=== PATIENT | male | born 1990 | race Caucasian/White ===

== ENCOUNTER 2016-06-29 22:36 | Emergency (ER) | payer BC ==
--- NOTE | 2016-06-29 23:11 | ERPHSYRPT ---
- History of Present Illness Time Seen by Provider: 06/29/16 22:55 Source: patient Physician History: PATIENT COMPLAINS OF ACUTE ONSET OF DYSURIA, FREQUENCY OF URINATION, CLOUDY URINE ASSOCIATED WITH RIGHT SIDED ABDOMINAL PAIN. DENIES URETHRAL DISCHARGE, FLANK PAIN, FEVER OR CHILLS. Timing/Duration: today Activites at Onset: none Quality: cramping Onset Location: RLQ, urethral Pain Radiation: none Severity of Pain-Max: moderate Severity of Pain-Current: mild Modifying Factors: Improves With: urinating Associated Symptoms: denies symptoms Prior abdominal problems: none Allergies/Adverse Reactions: erythromycin base [Erythromycin Base] Allergy (Mild, Verified 06/29/16 23:15) Rash Hx Tetanus, Diphtheria Vaccination/Date Given: No (UNSURE) Hx Influenza Vaccination/Date Given: No Hx Pneumococcal Vaccination/Date Given: No - Past Medical History Pertinent Past Medical History: Yes ENT History: No Pertinent History Cardiac History: No Pertinent History, Other Respiratory History: No Pertinent History Endocrine Medical History: No Pertinent History Musculoskeletal History: No Pertinent History GI Medical History: No Pertinent History History: No Pertinent History Psycho-Social History: No Pertinent History Male Reproductive Disorders: No Pertinent History Other Medical History: AORTIC REGURG - Past Surgical History Past Surgical History: Yes Neuro Surgical History: No Pertinent History Cardiac: No Pertinent History Respiratory: No Pertinent History Gastrointestinal: No Pertinent History Genitourinary: No Pertinent History Musculoskeletal: Orthopedic Surgery Male Surgical History: No Pertinent History Other Surgical History: SHOULDER - Social History Smoking Status: Current every day smoker How long have you smoked: 6 Exposure to second hand smoke: Yes Drug Use: none Patient Lives Alone: No - Review of Systems Constitutional: No Fever, No Chills Eyes: No Symptoms Ears, Nose, & Throat: No Symptoms Respiratory: No Symptoms, No Cough, No Dyspnea Cardiac: No Symptoms, No Chest Pain, No Edema, No Syncope Abdominal/Gastrointestinal: No Abdominal Pain, No Nausea, No Vomiting, No Diarrhea Genitourinary Symptoms: Dysuria Musculoskeletal: No Symptoms, No Back Pain, No Neck Pain Skin: No Rash Neurological: No Dizziness, No Focal Weakness, No Sensory Changes Psychological: No Symptoms Endocrine: No Symptoms All Other Systems: Reviewed and Negative - Nursing Vital Signs Nursing Vital Signs: Initial Vital Signs Temperature 98.7 F Temperature Source Oral Pulse Rate 64 Respiratory Rate 16 Blood Pressure [] 127/66 Pain Intensity 3 - Physical Exam General Appearance: no apparent distress, alert Eye Exam: PERRL/EOMI Ears, Nose, Throat Exam: pharynx normal, moist mucous membranes Neck Exam: normal inspection, supple Respiratory Exam: normal breath sounds, lungs clear Cardiovascular Exam: regular rate/rhythm, No edema Gastrointestinal/Abdomen Exam: soft, normal bowel sounds, tenderness (RIGHT LATERAL ABDOMINAL TENDERNESS) Back Exam: normal inspection, normal range of motion, No CVA tenderness Extremity Exam: normal inspection, normal range of motion, No pedal edema Neurologic Exam: alert, oriented x 3, cooperative, sensation nml, No motor deficits Skin Exam: normal color, warm, dry, No rash - CT Exams Abdomen/Pelvis CT Interpretation: Tele-radiologist Report (THERE IS A 2MM RIGHT URETEROVESICULAR JUNCTION/BLADDER STONE, NO SIGNIFICANT HYDRONEPHROSIS OR HYDROURETER) Ordered Tests: Active Orders 24 hr Category Date Time Status IV Insertion STAT Care 06/29/16 23:05 Active ABDOMEN AND PELVIS W CONTRAST [CT] Stat Exams 06/29/16 23:07 Taken BLOOD CULTURE Stat Lab 06/29/16 23:24 Received BMP Stat Lab 06/29/16 23:23 Completed CBC W DIFF Stat Lab 06/29/16 23:23 Completed CULTURE,URINE Stat Lab 06/29/16 23:10 Received UA W/ MICROSCOPIC Stat Lab 06/29/16 23:10 Completed Wet Prep Stat Lab 06/29/16 23:16 Completed Medication Summary Generic Name Dose Route Start Last Admin Trade Name Freq PRN Reason Stop Dose Admin Acetaminophen/Hydrocodone Bitart 2 tab 06/30/16 01:04 [place] 10/325 Mg Tablet PO 06/30/16 01:05 SENT HOME W/ PATIENT ONE Sodium Chloride 1,000 mls @ 500 mls/hr 06/29/16 23:15 06/29/16 23:24 Sodium Chloride 0.9% 1000 Ml IV 07/29/16 23:14 500 mls/hr .Q2H AQUILES Administration Discontinued Medications Generic Name Dose Route Start Last Admin Trade Name Freq PRN Reason Stop Dose Admin Sodium Chloride Confirm 06/29/16 23:23 Sodium Chloride 0.9% 1000 Ml Administered 06/29/16 23:24 Dose 1,000 mls @ ud .ROUTE .STK-MED ONE Ketorolac Tromethamine 30 mg 06/30/16 00:29 06/30/16 00:37 Toradol 30 Mg Injection IV 06/30/16 00:30 30 mg STAT ONE Administration Ketorolac Tromethamine Confirm 06/30/16 00:36 Toradol 30 Mg Injection Administered 06/30/16 00:37 Dose 30 mg .ROUTE .STK-MED ONE Lab/Rad Data: Laboratory Result Diagrams 06/29/16 23:23 06/29/16 23:23 Laboratory Results 06/29/16 06/29/16 06/29/16 Range/Units 23:23 23:23 23:16 WBC 10.8 H (4.0-10.5) K/mm3 RBC 4.71 (4.1-5.6) M/mm3 Hgb 14.3 (12.5-18.0) gm/dl Hct 41.6 L (42-50) % MCV 88.3 (78-100) fl MCH 30.4 (26-32) pg MCHC 34.4 (32-36) g/dl RDW 13.1 (11.5-14.0) % Plt Count 149 L (150-450) K/mm3 MPV 11.8 H (6-9.5) fl Gran % 79.8 H (36.0-66.0) % Lymphocytes % 13.8 L (24.0-44.0) % Monocytes % 6.0 (0.0-12.0) % Eosinophils % 0.3 (0.00-5.0) % Basophils % 0.1 (0.0-0.4) % Basophils # 0.01 (0-0.4) Sodium 141 (136-145) mEq/L Potassium 3.5 (3.5-5.1) mEq/L Chloride 105 (98-107) mEq/L Carbon Dioxide 26.4 (21-32) mEq/L Anion Gap 12.9 (5-15) MEQ/L BUN 16 (9-20) mg/dL Creatinine 1.23 (0.55-1.30) mg/dl Estimated GFR > 60 ML/MIN Glucose 122 H (70-110) MG/DL Calcium 8.8 (8.5-10.1) mg/dL Ur Collection Type Urine Color (YELLOW) Urine Appearance (CLEAR) Urine pH (5-6) Ur Specific [place] (1.005-1.025) Urine Protein (Negative) Urine Glucose (UA) (NEGATIVE) mg/dL Urine Ketones (NEGATIVE) Urine Nitrite (NEGATIVE) Urine Bilirubin (NEGATIVE) Urine Urobilinogen (0-1) mg/dL Urine WBC (Auto) (NEGATIVE) Urine RBC (Auto) (0-5) Jose D/ul Urine Microscopic RBC (0-2) /HPF Ur Epithelial Cells (FEW) /HPF Urine Bacteria (NEGATIVE) /HPF WBC (Wet Prep) None Seen RBC (Wet Prep) Few Epi Cells (Wet Prep) None Seen Bacteria (Wet Prep) Rare Clue Cells (Wet Prep) None Seen Trichomonas (Wet Prep) None Seen Budding Yeast (Wet Prp) None Seen Specimen Received 06/29/16 Range/Units 23:10 WBC (4.0-10.5) K/mm3 RBC (4.1-5.6) M/mm3 Hgb (12.5-18.0) gm/dl Hct (42-50) % MCV (78-100) fl MCH (26-32) pg MCHC (32-36) g/dl RDW (11.5-14.0) % Plt Count (150-450) K/mm3 MPV (6-9.5) fl Gran % (36.0-66.0) % Lymphocytes % (24.0-44.0) % Monocytes % (0.0-12.0) % Eosinophils % (0.00-5.0) % Basophils % (0.0-0.4) % Basophils # (0-0.4) Sodium (136-145) mEq/L Potassium (3.5-5.1) mEq/L Chloride (98-107) mEq/L Carbon Dioxide (21-32) mEq/L Anion Gap (5-15) MEQ/L BUN (9-20) mg/dL Creatinine (0.55-1.30) mg/dl Estimated GFR ML/MIN Glucose (70-110) MG/DL Calcium (8.5-10.1) mg/dL Ur Collection Type CLEAN CATCH Urine Color YELLOW (YELLOW) Urine Appearance CLEAR (CLEAR) Urine pH 5.5 (5-6) Ur Specific [place] 1.025 (1.005-1.025) Urine Protein 30 (Negative) Urine Glucose (UA) NEGATIVE (NEGATIVE) mg/dL Urine Ketones NEGATIVE (NEGATIVE) Urine Nitrite NEGATIVE (NEGATIVE) Urine Bilirubin NEGATIVE (NEGATIVE) Urine Urobilinogen 0.2 (0-1) mg/dL Urine WBC (Auto) NEGATIVE (NEGATIVE) Urine RBC (Auto) MODERATE (0-5) Jose D/ul Urine Microscopic RBC 25-50 (0-2) /HPF Ur Epithelial Cells FEW (FEW) /HPF Urine Bacteria RARE (NEGATIVE) /HPF WBC (Wet Prep) RBC (Wet Prep) Epi Cells (Wet Prep) Bacteria (Wet Prep) Clue Cells (Wet Prep) Trichomonas (Wet Prep) Budding Yeast (Wet Prp) Specimen Received [id number] - Progress Progress: improved Progress Note: 06/29/16 23:11 PATIENT GIVEN IV NORMAL SALINE 500MG/HR, TORADOL 30MG IV 06/30/16 00:59 Counseled pt/family regarding: lab results, diagnosis, need for follow-up, rad results - Departure Time of Disposition: 01:10 Departure Disposition: Home Clinical Impression: RIGHT DISTAL URETER STONE Condition: Stable Critical Care Time: No Referrals: JANINE PASCUAL [Primary Care Provider] - Additional Instructions: STRAIN YOUR URINE USING A STRAINER FOR 72 HOURS. NORCO 10/325 EVERY 4 HOURS FOR PAIN NEEDED. FLOMAX 0.4MG AT BEDTIME TO ASSIST PASSAGE OF STONE. RETURN TO EMERGENCY FOR INCREASING PAIN. CONSULT YOUR FAMILY PHYSICIAN FOR EVALUATION IN 1 WEEK. Prescriptions: Hydrocodone/APAP 10/325 mg [[place] 10/325 MG Tablet] 1 tab PO Q4H PRN PRN # 20 tablet PRN Reason: Pain Tamsulosin HCl 0.4 mg [Flomax 0.4 MG] 0.4 mg PO DAILY #7 cap
[2016-06-29] MEDS ORDERED: Sodium Chloride 0.9% 1000 ML 1,000 ML IV SCH (23:15)
[2016-06-29] MEDS ORDERED: Sodium Chloride 0.9% 1000 ML 1,000 ML ONE (23:23)
[2016-06-29 23:31] LABS: BASOPHIL % 0.1 % (0.0-0.4); Eosinophil % 0.3 % (0.00-5.0); Granulocytes % 79.8 % (36.0-66.0); Lymphocytes % 13.8 % (24.0-44.0); Mean Cell Volume 88.3 fl (78-100); Mean Corpuscular Hemoglobin 30.4 pg (26-32); Mean Platelet Volume 11.8 fl (6-9.5); Platelet Count 149 K/mm3 (150-450); Red Blood Count 4.71 M/mm3 (4.1-5.6); Red Cell Distribution Width 13.1 % (11.5-14.0); White Blood Count 10.8 K/mm3 (4.0-10.5)
[2016-06-29 23:54] LABS: ANION GAP 12.9 MEQ/L (5-15); BLOOD UREA NITROGEN 16 mg/dL (9-20); CHLORIDE 105 mEq/L (98-107); Carbon Dioxide 26.4 mEq/L (21-32); Glucose 122 MG/DL (70-110); Potassium 3.5 mEq/L (3.5-5.1); SODIUM 141 mEq/L (136-145)
[2016-06-30 00:03] LABS: COMPLETE URINE MICROSCOPIC? YES; Collection Type CLEAN CATCH; Epithelial Cells FEW /HPF (FEW); Ph 5.5 (5-6)
[2016-06-30 00:04] LABS: Bacteria RARE /HPF (NEGATIVE)
[2016-06-30 00:04] LABS: Bacteria Rare; Clue Cells None Seen
[2016-06-30 00:05] LABS: Trichomonas None Seen; Yeast None Seen
[2016-06-30] MEDS ORDERED: TORAdol 30 mg Injection IV ONE (00:29)
[2016-06-30] MEDS ORDERED: TORAdol 30 mg Injection ONE (00:36)
[2016-06-30 00:41] VITALS: BP 127/66
[2016-06-30] MEDS ORDERED: Norco 10/325 MG Tablet PO ONE (01:04)
[2016-06-30 01:05] LABS: CHLAMYDIA URINE NEGATIVE; GC URINE NEGATIVE
[2016-06-30] MEDS ORDERED: Norco 10/325 MG Tablet ONE (01:09)
[2016-06-30 01:24] VITALS: PULSE 83; O2SAT 98
--- NOTE | 2016-06-30 07:53 | XRAY ---
Indication: Right abdominal pain and dysuria. Multiple contiguous axial images obtained through the abdomen and pelvis using 80 cc Isovue-370 contrast only. Comparison: None Lung bases are clear. Heart is not enlarged. 2-3 mm calculus seen in the posterior right urinary bladder. Right ureter is slightly prominent presumed from recent passage of calculus. Additional right renal duodenum 3 mm calculus. Distal left ureter is also prominent up to 11 mm without calculus. Finding presumed not of clinical significance as the more proximal ureter is normal in caliber and there is no hydronephrosis or perinephric fluid hydronephrosis. Noncontrasted stomach and bowel loops appear nonobstructed. Normal appendix. No free fluid/air. 13 cm splenomegaly. Remaining liver, gallbladder, pancreas, spleen, adrenal glands, kidneys, bladder, and aorta appear normal in CT appearance and attenuation. No pathologic retroperitoneal lymphadenopathy. Osseous structures intact. Impression: 1. Right-sided urinary bladder microcalculus as detailed. 2. Incidental prominent distal left ureter without calculus or hydronephrosis probably not of clinical significance. However retrograde pyelogram may yield further information if there remains further clinical concern. 3. Splenomegaly. Comment: Preliminary interpretation was made by [facility]. Findings of the left ureter not reported and felt to be incidental. CTDI 20.06
== END 2016-06-30 01:28 | disposition home or self-care (01) ==
LOC: ED 22:36
DX: N20.1 Calculus of ureter (principal); R30.0 Dysuria; R35.0 Frequency of micturition; R82.90 Unspecified abnormal findings in urine; R10.9 Unspecified abdominal pain; R10.31 Right lower quadrant pain
CPT/HCPCS: 36000; 36415; 74177; 80048; 81000; 81002; 85025; 87040; 87086; 87210; 87491; 87591; 96360; 96361; 96374; 99284; J1885

== ENCOUNTER 2022-04-21 15:42 | Emergency (ER) | payer BC ==
[2022-04-21] MEDS ORDERED: Zofran 4 MG/2 ML VIAL IV ONE (15:55)
[2022-04-21] MEDS ORDERED: MORPHINE SULFATE 4 MG INJ IV ONE (15:55)
[2022-04-21] MEDS ORDERED: BABY ASPIRIN 81 MG CHEW PO ONE (15:55)
[2022-04-21] MEDS ORDERED: Sodium Chloride 0.9% 1000 ML 1,000 ML IV SCH (16:00)
[2022-04-21 16:06] LABS: Absolute Neutrophil Ct (ANC) 3.28 x10^3/uL (1.4-6.9); Basophil (Absolute #) 0.04 x10^3/uL (0-0.4); Eosinophil % 2.1 % (0.00-5.0); Eosinophil (Absolute #) 0.15 x10^3/uL (0-0.5); Hematocrit 44.6 % (42-50); Hemoglobin 15.3 g/dL (12.5-18.0); Lymphocyte (Absolute #) 2.89 x10^3/uL (1.0-4.6); Lymphocytes % 40.6 % (24.0-44.0); Mean Cell Volume 87.6 fL (78-100); Mean Corpuscular Hemoglobin 30.1 pg (26-32); Mean Corpuscular Hgb Concent. 34.3 g/dL (32-36); Mean Platelet Volume 11.3 fL (7.5-11.0); Monocyte (Absolute #) 0.73 x10^3/uL (0.0-1.3); Monocytes % 10.3 % (0.0-12.0); Platelet Count 211 x10^3/uL (150-450); Red Blood Count 5.09 x10^6/uL (4.1-5.6); Red Cell Distribution Width 12.6 % (11.5-14.0); White Blood Count 7.1 x10^3/uL (4.0-10.5)
--- NOTE | 2022-04-21 16:13 | ERPHSYRPT ---
- History of Present Illness Time Seen by Provider: 04/21/22 15:44 Historian: patient Exam Limitations: no limitations Patient Subjective Stated Complaint: PT HERE FOR EPIGASTRIC PAIN THAT STARTED AT REST ABOUT 30 MINS AGO, Triage Nursing Assessment: PT ALERT, WALKED IN, RESP EASY, CO SOB, SKIN W/D/P, NO EDEMA NOTED, CHEST CLEAR Physician History: 31 years old male with history of hypertension, hyperlipidemia, bicuspid aortic valve not taking any medication presented in the ER with chief complaint of sudden onset substernal chest pain, nonradiating, moderate to severe sharp without any significant aggravating or relieving factor, associated with some shortness of breath. No fever chills or cough reported. Timing/Duration: hour(s) (1), sudden Activities at Onset: rest Quality: sharpness Location: substernal Chest Pain Radiation: no radiation Severity of Pain-Max: moderate Severity of Pain-Current: moderate Modifying Factors: Improves With: nothing Associated Symptoms: denies symptoms Prior Chest Pain/Cardiac Workup: no prior cardiac workup Nitro Today/Relief: no nitro taken today Aspirin Treatment Today: no aspirin today Allergies/Adverse Reactions: erythromycin base [Erythromycin Base] Allergy (Mild, Verified 08/12/19 15:42) Rash Hx Tetanus, Diphtheria Vaccination/Date Given: No (UNSURE) Hx Influenza Vaccination/Date Given: No Hx Pneumococcal Vaccination/Date Given: No Immunizations Up to Date: Yes Travel Risk - International Travel Have you traveled outside of the country in past 3 weeks: No - Coronavirus Screening Are you exhibiting any of the following symptoms?: No Close contact with a COVID-19 positive Pt in past 14-21 Days: No - Vaccine Status Have you recieved a Covid-19 vaccination: No - Review of Systems Constitutional: No Symptoms Eyes: No Symptoms Ears, Nose, & Throat: No Symptoms Respiratory: Dyspnea Cardiac: Chest Pain Abdominal/Gastrointestinal: No Symptoms Genitourinary Symptoms: No Symptoms Musculoskeletal: No Symptoms Skin: No Symptoms Neurological: No Symptoms Psychological: No Symptoms Endocrine: No Symptoms Hematologic/Lymphatic: No Symptoms Immunological/Allergic: No Symptoms - Past Medical History Pertinent Past Medical History: Yes ENT History: No Pertinent History Cardiac History: Congenital Heart Disease, High Cholesterol, Hypertension, Other Respiratory History: No Pertinent History Endocrine Medical History: No Pertinent History Musculoskeletal History: No Pertinent History GI Medical History: No Pertinent History History: No Pertinent History Psycho-Social History: No Pertinent History Male Reproductive Disorders: No Pertinent History Other Medical History: AORTIC REGURG - Past Surgical History Past Surgical History: Yes Neuro Surgical History: No Pertinent History Cardiac: No Pertinent History Respiratory: No Pertinent History Gastrointestinal: No Pertinent History Genitourinary: No Pertinent History Musculoskeletal: Orthopedic Surgery Male Surgical History: No Pertinent History Other Surgical History: SHOULDER - Social History Smoking Status: Former smoker How long have you smoked: 6 Exposure to second hand smoke: Yes Drug Use: none Patient Lives Alone: No - Nursing Vital Signs Nursing Vital Signs: Initial Vital Signs Temperature 98.3 F 04/21/22 15:46 Pulse Rate 123 H 04/21/22 15:46 Respiratory Rate 22 04/21/22 15:46 Blood Pressure 174/120 04/21/22 15:46 O2 Sat by Pulse Oximetry 97 04/21/22 15:46 Pain Scale Pain Intensity 0 - Physical Exam General Appearance: no apparent distress, alert Eye Exam: PERRL/EOMI Ears, Nose, Throat Exam: normal ENT inspection, TMs normal, pharynx normal, moist mucous membranes Neck Exam: normal inspection, non-tender, supple, full range of motion Respiratory Exam: normal breath sounds, lungs clear Cardiovascular Exam: normal heart sounds, tachycardia Gastrointestinal/Abdomen Exam: soft, normal bowel sounds, No tenderness Back Exam: normal inspection, normal range of motion Extremity Exam: normal inspection, normal range of motion Neurologic Exam: alert, oriented x 3, cooperative Skin Exam: normal color SpO2 Interpretation: normal SpO2: 97 O2 Delivery: Room Air - Course EKG Interpreted by Me: RATE ([id number]), Sinus Tach, NORMAL AXIS, NORMAL INTERVALS, NORMAL QRS Ordered Tests: Active Orders 24 hr Category Date Time Status Eyeglass Maker STAT Care 04/21/22 15:55 Active EKG-ER Only STAT Care 04/21/22 15:55 Active IV Insertion STAT Care 04/21/22 15:55 Active Oxygen-ED Only Nasal Cannula 2 lpm Care 04/21/22 15:55 Active CHEST WITH CONTRAST [CT] Stat Exams 04/21/22 15:55 Taken CBC W DIFF Stat Lab 04/21/22 16:07 Completed CK-Creatinine Phosphokinase Stat Lab 04/21/22 16:07 Completed CMP Stat Lab 04/21/22 16:07 Completed NT PRO BNP Stat Lab 04/21/22 16:07 Completed TROPONIN Q4H Lab 04/22/22 00:00 Ordered TROPONIN Q4H Lab 04/21/22 16:07 Completed TROPONIN Q4H Lab 04/21/22 19:01 Completed Urine Triage Profile Stat Lab 04/21/22 17:08 Completed Medication Summary Generic Name Dose Route Start Last Admin Trade Name Nilda PRN Reason Stop Dose Admin Sodium Chloride 1,000 mls @ 100 mls/hr 04/21/22 16:00 04/21/22 16:40 Sodium Chloride 0.9% 1000 Ml IV 05/21/22 15:59 100 mls/hr .Q10H AQUILES Administration Discontinued Medications Generic Name Dose Route Start Last Admin Trade Name Nilda PRN Reason Stop Dose Admin Aspirin 324 mg 04/21/22 15:55 04/21/22 16:40 Aspirin 81 Mg Tab.Chew PO 04/21/22 15:56 324 mg STAT ONE Administration Aspirin Confirm 04/21/22 16:37 Aspirin 81 Mg Tab.Chew Administered 04/21/22 16:38 Dose 324 mg .ROUTE .STK-MED ONE Morphine Sulfate 4 mg 04/21/22 15:55 04/21/22 16:40 Morphine Sulfate 4 Mg/Ml Injection IV 04/21/22 15:56 4 mg STAT ONE Administration Morphine Sulfate Confirm 04/21/22 16:37 Morphine Sulfate 4 Mg/Ml Injection Administered 04/21/22 16:38 Dose 4 mg .ROUTE .STK-MED ONE Ondansetron HCl 4 mg 04/21/22 15:55 04/21/22 16:40 Ondansetron Hcl 4 Mg/2 Ml Vial IV 04/21/22 15:56 4 mg STAT ONE Administration Ondansetron HCl Confirm 04/21/22 16:37 Ondansetron Hcl 4 Mg/2 Ml Vial Administered 04/21/22 16:38 Dose 4 mg .ROUTE .STK-MED ONE Lab/Rad Data: Laboratory Result Diagrams 04/21/22 16:07 04/21/22 16:07 Laboratory Results 04/21/22 04/21/22 04/21/22 Range/Units 19:01 17:08 16:07 WBC (4.0-10.5) x10^3/uL RBC (4.1-5.6) x10^6/uL Hgb (12.5-18.0) g/dL Hct (42-50) % MCV (78-100) fL MCH (26-32) pg MCHC (32-36) g/dL RDW (11.5-14.0) % Plt Count (150-450) x10^3/uL MPV (7.5-11.0) fL Gran % (36.0-66.0) % Immature Gran % (Auto) (0.00-0.4) % Nucleat RBC Rel Count (0.00-0.1) % Eos # (Auto) (0-0.5) x10^3/uL Immature Gran # (Auto) (0.00-0.03) x10^3u/L Absolute Lymphs (auto) (1.0-4.6) x10^3/uL Absolute Monos (auto) (0.0-1.3) x10^3/uL Absolute Nucleated RBC (0.00-0.01) x10^3u/L Lymphocytes % (24.0-44.0) % Monocytes % (0.0-12.0) % Eosinophils % (0.00-5.0) % Basophils % (0.0-0.4) % Absolute Granulocytes (1.4-6.9) x10^3/uL Basophils # (0-0.4) x10^3/uL Sodium (137-145) mmol/L Potassium (3.5-5.1) mmol/L Chloride (98-107) mmol/L Carbon Dioxide (22-30) mmol/L Anion Gap (5-15) MEQ/L BUN (9-20) mg/dL Creatinine (0.66-1.25) mg/dL Estimated GFR ML/MIN Glucose (74-106) mg/dL Calcium (8.4-10.2) mg/dL Total Bilirubin (0.2-1.3) mg/dL AST (17-59) U/L ALT (0-50) U/L Alkaline Phosphatase (38-126) U/L Creatine Kinase (55-170) U/L Troponin I < 0.012 < 0.012 (0.000-0.034) ng/mL NT-Pro-B Natriuret Pep (0-450) pg/mL Serum Total Protein (6.3-8.2) g/dL Albumin (3.5-5.0) g/dL Urine Opiates Level NEGATIVE (NEGATIVE) Ur Methadone NEGATIVE (NEGATIVE) Urine Barbiturates NEGATIVE (NEGATIVE) Ur Phencyclidine (PCP) NEGATIVE (NEGATIVE) Urine Amphetamine NEGATIVE (NEGATIVE) U Benzodiazepine Level NEGATIVE (NEGATIVE) Urine Cocaine NEGATIVE (NEGATIVE) Urine Marijuana (THC) NEGATIVE (NEGATIVE) 04/21/22 04/21/22 Range/Units 16:07 16:07 WBC 7.1 (4.0-10.5) x10^3/uL RBC 5.09 (4.1-5.6) x10^6/uL Hgb 15.3 (12.5-18.0) g/dL Hct 44.6 (42-50) % MCV 87.6 (78-100) fL MCH 30.1 (26-32) pg MCHC 34.3 (32-36) g/dL RDW 12.6 (11.5-14.0) % Plt Count 211 (150-450) x10^3/uL MPV 11.3 H (7.5-11.0) fL Gran % 46.0 (36.0-66.0) % Immature Gran % (Auto) 0.4 (0.00-0.4) % Nucleat RBC Rel Count 0.0 (0.00-0.1) % Eos # (Auto) 0.15 (0-0.5) x10^3/uL Immature Gran # (Auto) 0.03 (0.00-0.03) x10^3u/L Absolute Lymphs (auto) 2.89 (1.0-4.6) x10^3/uL Absolute Monos (auto) 0.73 (0.0-1.3) x10^3/uL Absolute Nucleated RBC 0.00 (0.00-0.01) x10^3u/L Lymphocytes % 40.6 (24.0-44.0) % Monocytes % 10.3 (0.0-12.0) % Eosinophils % 2.1 (0.00-5.0) % Basophils % 0.6 (0.0-0.4) % Absolute Granulocytes 3.28 (1.4-6.9) x10^3/uL Basophils # 0.04 (0-0.4) x10^3/uL Sodium 139 (137-145) mmol/L Potassium 3.8 (3.5-5.1) mmol/L Chloride 103 (98-107) mmol/L Carbon Dioxide 24 (22-30) mmol/L Anion Gap 15.4 H (5-15) MEQ/L BUN 18 (9-20) mg/dL Creatinine 0.93 (0.66-1.25) mg/dL Estimated GFR > 60.0 ML/MIN Glucose 104 (74-106) mg/dL Calcium 9.5 (8.4-10.2) mg/dL Total Bilirubin 0.80 (0.2-1.3) mg/dL AST 44 (17-59) U/L ALT 54 H (0-50) U/L Alkaline Phosphatase 90 (38-126) U/L Creatine Kinase 236 H (55-170) U/L Troponin I (0.000-0.034) ng/mL NT-Pro-B Natriuret Pep 39.1 (0-450) pg/mL Serum Total Protein 8.0 (6.3-8.2) g/dL Albumin 4.9 (3.5-5.0) g/dL Urine Opiates Level (NEGATIVE) Ur Methadone (NEGATIVE) Urine Barbiturates (NEGATIVE) Ur Phencyclidine (PCP) (NEGATIVE) Urine Amphetamine (NEGATIVE) U Benzodiazepine Level (NEGATIVE) Urine Cocaine (NEGATIVE) Urine Marijuana (THC) (NEGATIVE) - Progress Progress: improved Air Movement: good Progress Note: 04/21/22 19:45 31-year-old is evaluated for sudden onset chest pain with shortness of breath. Given symptomatic treatment along with fluids, on reevaluation patient is feeling much better and has improvement in chest pain and no short of breath. He is not hypoxic. EKG showed sinus tach with no ST elevation. Negative troponins x2. Obtained CTA which ruled out PE, dissection, pneumonia, pneumothorax. Patient has a low heart score and chest pain is not very typical of cardiac etiology, could have some element of GERD with esophagitis and will give a prescription of Protonix to take at home. Discussed signs symptoms of worsening needing return to ER which he seems understanding. Outpatient follow- up recommended. Blood Culture(s) Obtained: No Antibiotics given: No Counseled pt/family regarding: lab results, diagnosis, need for follow-up, rad results, smoking cessation - Departure Departure Disposition: Home Clinical Impression: Atypical chest pain Condition: Stable Critical Care Time: No Referrals: DOCTOR,NO FAMILY [Primary Care Provider] - Follow up/PCP as directed MATILDA TOMAS [ACTIVE STAFF] - Follow up/PCP as directed (In 2 days for reevaluation) Instructions: Angina (DC) Additional Instructions: Take Tylenol as needed for pain. Follow-up with primary care for reevaluation. Return to ER for worsening chest pain or difficulty breathing. Do not vape/smoke. Prescriptions: PANTOPRAZOLE 40 mg Tablet [Protonix 40MG Tablet] 40 mg PO QAM #30 tab
[2022-04-21 16:29] LABS: ALBUMIN 4.9 g/dL (3.5-5.0); ALKALINE PHOSPHATASE 90 U/L (38-126); ANION GAP 15.4 MEQ/L (5-15); BLOOD UREA NITROGEN 18 mg/dL (9-20); CHLORIDE 103 mmol/L (98-107); CK-Creatinine Phosphokinase 236 U/L (55-170); Calcium 9.5 mg/dL (8.4-10.2); Carbon Dioxide 24 mmol/L (22-30); Creatinine 1 0.93 mg/dL (0.66-1.25); EST GLOMERULAR FILTRATION RATE > 60.0 ML/MIN; Glucose 104 mg/dL (74-106); NT PRO BNP 39.1 pg/mL (0-450); Potassium 3.8 mmol/L (3.5-5.1); SGOT/AST 44 U/L (17-59); SGPT/ALT 54 U/L (0-50); SODIUM 139 mmol/L (137-145)
[2022-04-21] MEDS ORDERED: Zofran 4 MG/2 ML VIAL ONE (16:37)
[2022-04-21] MEDS ORDERED: MORPHINE SULFATE 4 MG INJ ONE (16:37)
[2022-04-21] MEDS ORDERED: BABY ASPIRIN 81 MG CHEW ONE (16:37)
[2022-04-21] MEDS ORDERED: Sodium Chloride 0.9% 1000 ML 1,000 ML ONE (16:37)
[2022-04-21 17:30] LABS: Amphetamine,Urine NEGATIVE (NEGATIVE); Barbiturate,Urine NEGATIVE (NEGATIVE); Benzodiazepine,Urine NEGATIVE (NEGATIVE); Cocaine,Urine NEGATIVE (NEGATIVE); Methadone,Urine NEGATIVE (NEGATIVE); Opiate,Urine NEGATIVE (NEGATIVE); PCP,Urine NEGATIVE (NEGATIVE); THC,Urine NEGATIVE (NEGATIVE)
[2022-04-21 19:09] VITALS: BP 126/72; PULSE 78; O2SAT 97
--- NOTE | 2022-04-21 20:26 | XRAY ---
Indication: Chest pain and short of breath. Pulmonary embolus. Multiple contiguous images obtained through the chest using 80 cc Isovue 370 contrast and PE protocol. Comparison: None Good opacification of the pulmonary arteries. However mild respiration artifact limits evaluation of the more distal lobar and segmental branches. No obvious pulmonary embolus. Heart not enlarged. Aorta is normal in course and caliber. Tiny mediastinal and right hilar calcified nodes. No pathologic mediastinal/hilar lymphadenopathy. Lungs demonstrates mild bilateral dependent atelectasis. No suspicious pulmonary mass, infiltrate, effusion, or pneumothorax. Bony thorax intact with minimal degenerative changes throughout the spine. Limited upper abdomen demonstrates fatty liver. Impression: 1. Mild respiration artifact limits evaluation for pulmonary embolus. No obvious pulmonary embolus. 2. Incidental degenerative spondylosis, fatty liver, and old granulomatous disease. 3. Remaining CT chest with contrast exam is negative. Comment: Preliminary interpretation made by C. No critical discrepancy.
== END 2022-04-21 19:53 | disposition home or self-care (01) ==
LOC: ED 15:42
DX: R07.89 Other chest pain (principal); R06.02 Shortness of breath; I10 Essential (primary) hypertension; E78.5 Hyperlipidemia, unspecified; Z28.310 Unvaccinated for COVID-19
CPT/HCPCS: 36000; 36415; 71260; 80053; 80307; 82550; 83880; 84484; 85025; 93005; 93041; 96360; 96361; 96374; 96375; 99284; J2270; J2405; A9270-GY

== ENCOUNTER 2023-05-23 15:17 | Emergency (ER) | payer BC ==
[2023-05-23 15:27] VITALS: TEMP 98.5
--- NOTE | 2023-05-23 15:29 | ERPHSYRPT ---
- History of Present Illness Time Seen by Provider: 05/23/23 15:28 Source: patient, EMS Exam Limitations: no limitations Patient Subjective Stated Complaint: C/O rapid heart rate that started approx 50 minutes prior to coming into the ER while washing his vehicle. Tachycardia did not resolve with rest. Denies pain. Triage Nursing Assessment: Patient arrived by ambulance. He is alert and oriented. No SOB. He does have an occassional, non-productive cough. Skin tone normal. KELSEA ESTRADA. Physician History: This is a 32-year-old white male patient who sees a steward/stewardess dining room in [place] for his high blood pressure. Patient was placed on valsartan 160 mg daily. However, 2 weeks ago, because he was sleepy and fatigued, the patient cut his valsartan medication in half for a week. He then began feeling funny and fatigu ed again despite the decrease in dose and stopped the medicine altogether 1 week ago. Today, he was washing his vehicle and he noticed his heart racing. This occurred approxi-50 minutes prior to his visit here in the emergency department. Because the symptoms did not resolve, he contacted the paramedics who brought him into the emergency department. Patient never let the steward/stewardess dining room know that he had changed the dosing and then stopped his medication. Patient denies shortness of breath. He denies chest pain. Patient does have a history of GERD and anxiety issues. Patient did state that he has modified his lifestyle in terms of eating better, he has stopped drinking alcohol and has stopped vaping. In addition he has lost at least 10 pounds. Timing/Duration: today Activities at Onset: none Quality: aching Location: other (No chest pain) Severity of Pain-Max: none Severity of Pain-Current: none Nitro Today/Relief: no nitro taken today Aspirin Treatment Today: no aspirin today Associated Symptoms: denies symptoms Prior Chest Pain/Cardiac Workup: no prior chest pain Allergies/Adverse Reactions: erythromycin base [Erythromycin Base] Allergy (Mild, Verified 05/23/23 15:19) Rash Home Medications: Omeprazole 1 tab PO DAILY 05/23/23 [History] Hx Tetanus, Diphtheria Vaccination/Date Given: No (UNSURE) Hx Influenza Vaccination/Date Given: No Hx Pneumococcal Vaccination/Date Given: No Travel Risk - International Travel Have you traveled outside of the country in past 3 weeks: No - Coronavirus Screening Are you exhibiting any of the following symptoms?: Yes Symptoms: Cough: New Onset Close contact with a COVID-19 positive Pt in past 14-21 Days: No - Vaccine Status Have you recieved a Covid-19 vaccination: No - Review of Systems Constitutional: No Symptoms Eyes: No Symptoms Ears, Nose, & Throat: No Symptoms Respiratory: No Symptoms Cardiac: Palpitations Abdominal/Gastrointestinal: No Symptoms Genitourinary Symptoms: No Symptoms Musculoskeletal: No Symptoms Skin: No Symptoms Neurological: No Symptoms Psychological: No Symptoms Endocrine: No Symptoms Hematologic/Lymphatic: No Symptoms Immunological/Allergic: No Symptoms All Other Systems: Reviewed and Negative - Past Medical History Pertinent Past Medical History: Yes ENT History: No Pertinent History Cardiac History: Congenital Heart Disease, High Cholesterol, Hypertension, Other Respiratory History: No Pertinent History Endocrine Medical History: No Pertinent History Musculoskeletal History: No Pertinent History GI Medical History: No Pertinent History History: No Pertinent History Psycho-Social History: No Pertinent History Male Reproductive Disorders: No Pertinent History Other Medical History: AORTIC REGURG caused by bicuspid aortic valve - Past Surgical History Past Surgical History: Yes Neuro Surgical History: No Pertinent History Cardiac: No Pertinent History Respiratory: No Pertinent History Gastrointestinal: No Pertinent History Genitourinary: No Pertinent History Musculoskeletal: Orthopedic Surgery Male Surgical History: No Pertinent History Other Surgical History: SHOULDER - Social History Smoking Status: Former smoker How long have you smoked: 6 Exposure to second hand smoke: Yes Drug Use: none Patient Lives Alone: No - Nursing Vital Signs Nursing Vital Signs: Initial Vital Signs Temperature 98.5 F 05/23/23 15:21 Pulse Rate 113 H 05/23/23 15:21 Respiratory Rate 20 05/23/23 15:21 Blood Pressure 133/82 05/23/23 15:21 O2 Sat by Pulse Oximetry 98 05/23/23 15:21 Pain Scale Pain Intensity 0 - Physical Exam General Appearance: no apparent distress, alert, anxiety Eye Exam: PERRL/EOMI, eyes nml inspection Ears, Nose, Throat Exam: normal ENT inspection, moist mucous membranes Neck Exam: normal inspection, non-tender, supple, full range of motion Respiratory Exam: normal breath sounds, lungs clear, airway intact, No chest tenderness, No respiratory distress Cardiovascular Exam: tachycardia Gastrointestinal/Abdomen Exam: soft, normal bowel sounds, No tenderness Rectal Exam: not done Back Exam: normal inspection, normal range of motion, No CVA tenderness Extremity Exam: normal inspection, normal range of motion, pelvis stable Neurologic Exam: alert, oriented x 3, cooperative, roto mixer operator II-XII nml as tested, normal mood/affect, nml cerebellar function, nml station & gait, sensation nml Skin Exam: normal color, warm, dry Lymphatic Exam: No adenopathy SpO2 Interpretation: normal SpO2: 98 O2 Delivery: Room Air - Course Nursing assessment & vital signs reviewed: Yes EKG Interpreted by Me: RATE ([id number]), Sinus Tach, NORMAL AXIS, NORMAL INTERVALS, NORMAL QRS, NORMAL ST-T, Other (No acute ischemic changes on today's twelve-lead EKG.) Ordered Tests: Active Orders 24 hr Category Date Time Status Costume Director STAT Care 05/23/23 15:29 Active EKG-ER Only STAT Care 05/23/23 15:29 Active CBC W DIFF Stat Lab 05/23/23 15:46 Completed CMP Stat Lab 05/23/23 15:46 Completed MAGNESIUM Stat Lab 05/23/23 15:46 Completed TROPONIN Q4H Lab 05/23/23 15:46 Completed TROPONIN Q4H Lab 05/23/23 19:30 Ordered TROPONIN Q4H Lab 05/23/23 23:30 Ordered Lab/Rad Data: Laboratory Result Diagrams 05/23/23 15:46 05/23/23 15:46 Laboratory Results 05/23/23 05/23/23 05/23/23 Range/Units 15:46 15:46 15:46 WBC 7.2 (4.0-10.5) x10^3/uL RBC 4.10 (4.1-5.6) x10^6/uL Hgb 11.9 L (12.5-18.0) g/dL Hct 35.2 L (42-50) % MCV 85.9 (78-100) fL MCH 29.0 (26-32) pg MCHC 33.8 (32-36) g/dL RDW 12.0 (11.5-14.0) % Plt Count 231 (150-450) x10^3/uL MPV 10.3 (7.5-11.0) fL Gran % 75.7 H (36.0-66.0) % Immature Gran % (Auto) 0.4 (0.00-0.4) % Nucleat RBC Rel Count 0.0 (0.00-0.1) % Eos # (Auto) 0.02 (0-0.5) x10^3/uL Immature Gran # (Auto) 0.03 (0.00-0.03) x10^3u/L Absolute Lymphs (auto) 1.18 (1.0-4.6) x10^3/uL Absolute Monos (auto) 0.51 (0.0-1.3) x10^3/uL Absolute Nucleated RBC 0.00 (0.00-0.01) x10^3u/L Lymphocytes % 16.3 L (24.0-44.0) % Monocytes % 7.0 (0.0-12.0) % Eosinophils % 0.3 (0.00-5.0) % Basophils % 0.3 (0.0-0.4) % Absolute Granulocytes 5.48 (1.4-6.9) x10^3/uL Basophils # 0.02 (0-0.4) x10^3/uL Sodium 135 L (137-145) mmol/L Potassium 3.2 L (3.5-5.1) mmol/L Chloride 105 (98-107) mmol/L Carbon Dioxide 21 L (22-30) mmol/L Anion Gap 13.0 (5-15) MEQ/L BUN 12 (9-20) mg/dL Creatinine 0.91 (0.66-1.25) mg/dL Estimated GFR 113.4 ML/MIN Glucose 109 H (74-106) mg/dL Calcium 9.2 (8.4-10.2) mg/dL Magnesium 2.2 (1.6-2.3) mg/dL Total Bilirubin 0.90 (0.2-1.3) mg/dL AST 24 (17-59) U/L ALT 36 (0-50) U/L Alkaline Phosphatase 108 (38-126) U/L Troponin I < 0.012 (0.000-0.034) ng/mL Serum Total Protein 7.5 (6.3-8.2) g/dL Albumin 4.0 (3.5-5.0) g/dL - Progress Progress: improved, re-examined Air Movement: good Progress Note: 05/23/23 16:26 This patient's medical issue is 1 of moderate complexity. The level of complexity and the workup performed is based on review of the patient's past medical history, review of the patient's medication list, review of the patient's drug allergy list, history present illness and physical findings on examination. The workup includes CBC, CMP, troponin level, twelve-lead EKG. 05/23/23 16:27 I reviewed the patient's laboratory data results and interpreted them. The patient has a low potassium level at 3.2. Will provide oral potassium 20 mill equivalents now and send a prescription to his pharmacy for 2 more days of potassium. Blood Culture(s) Obtained: No Antibiotics given: No Counseled pt/family regarding: lab results, diagnosis, need for follow-up Medical Desision Making - Independent Historian Additional History obtained from: Spouse, Director Smb Sales/EMT - Diagnostic Testing Diagnostic test were ordered, analyzed, and reviewed by me: Yes - Risk of complications The pt has a mod risk of morbidity or mortality based on: Need for prescription drug management - Departure Departure Disposition: Home Clinical Impression: Sinus tachycardia, Hypokalemia, Anxiety about health Condition: Stable Critical Care Time: No Referrals: DOCTOR,NO FAMILY [NON-STAFF PHY W/O PRIVILEGES] - Follow up/PCP as directed Additional Instructions: Take your potassium supplementation as prescribed. Call your steward/stewardess dining room tomorrow, 05/24/2023 and make them aware that you have stopped your valsartan and make a follow-up appointment for further management and instructions. Prescriptions: Potassium Chloride Tab* [Klor Con] 10 meq PO BID #4 tab
[2023-05-23 15:56] LABS: Absolute Neutrophil Ct (ANC) 5.48 x10^3/uL (1.4-6.9); BASOPHIL % 0.3 % (0.0-0.4); Basophil (Absolute #) 0.02 x10^3/uL (0-0.4); Eosinophil % 0.3 % (0.00-5.0); Eosinophil (Absolute #) 0.02 x10^3/uL (0-0.5); Hematocrit 35.2 % (42-50); Hemoglobin 11.9 g/dL (12.5-18.0); IMMATURE GRAN # 0.03 x10^3u/L (0.00-0.03); IMMATURE GRAN % 0.4 % (0.00-0.4); Lymphocyte (Absolute #) 1.18 x10^3/uL (1.0-4.6); Lymphocytes % 16.3 % (24.0-44.0); Mean Cell Volume 85.9 fL (78-100); Mean Corpuscular Hgb Concent. 33.8 g/dL (32-36); Mean Platelet Volume 10.3 fL (7.5-11.0); Monocyte (Absolute #) 0.51 x10^3/uL (0.0-1.3); Neutrophil % 75.7 % (36.0-66.0); Platelet Count 231 x10^3/uL (150-450); White Blood Count 7.2 x10^3/uL (4.0-10.5)
[2023-05-23 16:07] LABS: BILIRUBIN,TOTAL 0.9 mg/dL (0.2-1.3); Calcium 9.2 mg/dL (8.4-10.2); Creatinine 1 0.91 mg/dL (0.66-1.25); EST GLOMERULAR FILTRATION RATE 113.4 ML/MIN; MAGNESIUM 2.2 mg/dL (1.6-2.3); Potassium 3.2 mmol/L (3.5-5.1); Total Protein 7.5 g/dL (6.3-8.2)
[2023-05-23 16:22] VITALS: BP 128/70; PULSE 92; RESP 12
[2023-05-23 16:27] VITALS: O2SAT 98
[2023-05-23] MEDS ORDERED: Klor Con ONE (16:29)
[2023-05-23] MEDS: Klor Con PO ONE (16:30)
== END 2023-05-23 16:40 | disposition home or self-care (01) ==
LOC: ED 15:17
DX: R00.0 Tachycardia, unspecified (principal); E87.6 Hypokalemia; F45.9 Somatoform disorder, unspecified; E78.5 Hyperlipidemia, unspecified; I10 Essential (primary) hypertension; Z28.310 Unvaccinated for COVID-19
CPT/HCPCS: 36415; 80053; 83735; 84484; 85025; 93005; 93041; 99283; A9270-GY

== ENCOUNTER 2023-08-07 13:12 | Emergency (ER) | payer BC ==
[2023-08-07 13:34] VITALS: TEMP 97.1
--- NOTE | 2023-08-07 14:08 | ERPHSYRPT ---
- History of Present Illness Time Seen by Provider: 08/07/23 13:27 Source: patient Exam Limitations: no limitations Patient Subjective Stated Complaint: pt here for pain to left side of ribs since yesterday, no injury , no cough or fever, took tylenol Triage Nursing Assessment: pt walked in, resp easy, skin w/d/p, no cough, moves all ext well, no bruising noted, Physician History: 32 years old healthy male presented to the ER with complains of left lower posterolateral chest wall and flank area pain since yesterday, moderate to severe sharp, more with taking deep breath, movements and better with being still. Denies associated palpitations or shortness of breath except for some difficulty taking a deep breath because of pain. Denies any nausea or vomiting. No urinary complaints. No history of DVT/PEs. Denies any fall or trauma. No pulling or pushing heavy objects. No history of chronic pains. Allergies/Adverse Reactions: erythromycin base [Erythromycin Base] Allergy (Mild, Verified 08/07/23 13:22) Rash Home Medications: Omeprazole 1 tab PO DAILY 05/23/23 [History] Escitalopram Oxalate [Lexapro] 20 mg PO DAILY 08/07/23 [History] Hx Tetanus, Diphtheria Vaccination/Date Given: No (UNSURE) Hx Influenza Vaccination/Date Given: No Hx Pneumococcal Vaccination/Date Given: No Immunizations Up to Date: Yes Travel Risk - International Travel Have you traveled outside of the country in past 3 weeks: No - Emerging Infectious Disease Are you exhibiting symptoms associated with any current EIDs: No - Review of Systems Constitutional: No Symptoms Ears, Nose, & Throat: No Symptoms Respiratory: No Symptoms Cardiac: Chest Pain Abdominal/Gastrointestinal: No Symptoms Genitourinary Symptoms: Flank Pain Musculoskeletal: Back Pain Skin: No Symptoms Neurological: No Symptoms Psychological: No Symptoms Endocrine: No Symptoms Hematologic/Lymphatic: No Symptoms Immunological/Allergic: No Symptoms - Past Medical History Pertinent Past Medical History: Yes ENT History: No Pertinent History Cardiac History: Congenital Heart Disease, Other Respiratory History: No Pertinent History Endocrine Medical History: No Pertinent History Musculoskeletal History: No Pertinent History GI Medical History: No Pertinent History History: No Pertinent History Psycho-Social History: No Pertinent History Male Reproductive Disorders: No Pertinent History Other Medical History: AORTIC REGURG caused by bicuspid aortic valve - Past Surgical History Past Surgical History: Yes Neuro Surgical History: No Pertinent History Cardiac: No Pertinent History Respiratory: No Pertinent History Gastrointestinal: No Pertinent History Genitourinary: No Pertinent History Musculoskeletal: Orthopedic Surgery Male Surgical History: No Pertinent History Other Surgical History: SHOULDER - Social History Smoking Status: Never smoker How long have you smoked: 6 Exposure to second hand smoke: No Drug Use: none Patient Lives Alone: No - Nursing Vital Signs Nursing Vital Signs: Initial Vital Signs Temperature 97.1 F 08/07/23 13:33 Pulse Rate 91 H 08/07/23 13:33 Respiratory Rate 18 08/07/23 13:33 Blood Pressure 106/54 08/07/23 13:33 O2 Sat by Pulse Oximetry 98 08/07/23 13:33 Pain Scale Pain Intensity 6 - Physical Exam General Appearance: no apparent distress, alert Eye Exam: PERRL/EOMI Ears, Nose, Throat Exam: normal ENT inspection, TMs normal, pharynx normal, moist mucous membranes Neck Exam: normal inspection, non-tender, supple, full range of motion Respiratory Exam: normal breath sounds, chest tenderness (Left lower lateral to posterior chest wall with no crepitus. No flail segment. No rash. Flank tenderness.), lungs clear Cardiovascular Exam: regular rate/rhythm, normal heart sounds Gastrointestinal/Abdomen Exam: soft, normal bowel sounds, tenderness Back Exam: normal inspection Extremity Exam: normal inspection, normal range of motion Neurologic Exam: alert, oriented x 3, cooperative Skin Exam: normal color SpO2 Interpretation: normal SpO2: 98 O2 Delivery: Room Air - Course EKG Interpreted by Me: RATE ([id number]), Sinus Rhythm, NORMAL AXIS, prolonged QT interval, Non-specific ST Changes Ordered Tests: Active Orders 24 hr Category Date Time Status EKG-ER Only STAT Care 08/07/23 14:04 Completed IV Insertion STAT Care 08/07/23 14:04 Completed NPO (ED) STAT Care 08/07/23 14:04 Completed ABDOMEN AND PELVIS W CONTRAST [CT] Stat Exams 08/07/23 14:49 Completed CHEST 1 VIEW (PORTABLE) Stat Exams 08/07/23 14:05 Completed CHEST WITH CONTRAST [CT] Stat Exams 08/07/23 14:49 Completed CBC W DIFF Stat Lab 08/07/23 14:13 Completed CMP Stat Lab 08/07/23 14:13 Completed CULTURE,URINE Stat Lab 08/07/23 15:20 Results D-DIMER QUANTITATIVE Stat Lab 08/07/23 14:13 Completed PT INR [PROTIME WITH INR] Stat Lab 08/07/23 15:47 Completed PTT Stat Lab 08/07/23 15:47 Completed TROPONIN Q4H Lab 08/07/23 14:13 Completed UA W/RFX UR CULTURE Stat Lab 08/07/23 15:20 Completed Medication Summary Discontinued Medications Generic Name Dose Route Start Last Admin Trade Name Nilda PRN Reason Stop Dose Admin Sodium Chloride 1,000 mls @ 999 mls/hr 08/07/23 14:04 08/07/23 15:37 Sodium Chloride 0.9% 1000 Ml IV 08/07/23 15:04 Infused .Q1H1M STA Infusion Sodium Chloride Confirm 08/07/23 14:19 Sodium Chloride 0.9% 1000 Ml Administered 08/07/23 14:20 Dose 1,000 mls @ ud .ROUTE .STK-MED ONE Sodium Chloride 1,000 mls @ 999 mls/hr 08/07/23 15:58 08/07/23 17:20 Sodium Chloride 0.9% 1000 Ml IV 08/07/23 16:58 Infused .Q1H1M STA Infusion Sodium Chloride Confirm 08/07/23 16:00 Sodium Chloride 0.9% 1000 Ml Administered 08/07/23 16:01 Dose 1,000 mls @ ud .ROUTE .STK-MED ONE Lorazepam 1 mg 08/07/23 16:36 08/07/23 16:42 Lorazepam 2 Mg/1 Ml 2 Mg Vial IV 08/07/23 16:37 1 mg STAT ONE Administration Lorazepam Confirm 08/07/23 16:41 Lorazepam 2 Mg/1 Ml 2 Mg Vial Administered 08/07/23 16:42 Dose 2 mg .ROUTE .STK-MED ONE Morphine Sulfate 4 mg 08/07/23 14:04 08/07/23 14:25 Morphine Sulfate 4 Mg/Ml Injection IV 08/07/23 14:05 4 mg STAT ONE Administration Morphine Sulfate Confirm 08/07/23 14:19 Morphine Sulfate 4 Mg/Ml Injection Administered 08/07/23 14:20 Dose 4 mg .ROUTE .STK-MED ONE Ondansetron HCl 4 mg 08/07/23 14:04 08/07/23 14:22 Ondansetron Hcl 4 Mg/2 Ml Vial IV 08/07/23 14:05 4 mg STAT ONE Administration Ondansetron HCl Confirm 08/07/23 14:18 Ondansetron Hcl 4 Mg/2 Ml Vial Administered 08/07/23 14:19 Dose 4 mg .ROUTE .[facility]-MED ONE Lab/Rad Data: Laboratory Result Diagrams 08/07/23 14:13 08/07/23 14:13 Laboratory Results 08/07/23 08/07/23 08/07/23 Range/Units Unknown 16:15 15:47 WBC (4.0-10.5) x10^3/uL RBC (4.1-5.6) x10^6/uL Hgb (12.5-18.0) g/dL Hct (42-50) % MCV (78-100) fL MCH (26-32) pg MCHC (32-36) g/dL RDW (11.5-14.0) % Plt Count (150-450) x10^3/uL MPV (7.5-11.0) fL Gran % (36.0-66.0) % Immature Gran % (Auto) (0.00-0.4) % Nucleat RBC Rel Count (0.00-0.1) % Eos # (Auto) (0-0.5) x10^3/uL Immature Gran # (Auto) (0.00-0.03) x10^3u/L Absolute Lymphs (auto) (1.0-4.6) x10^3/uL Absolute Monos (auto) (0.0-1.3) x10^3/uL Absolute Nucleated RBC (0.00-0.01) x10^3u/L Lymphocytes % (24.0-44.0) % Monocytes % (0.0-12.0) % Eosinophils % (0.00-5.0) % Basophils % (0.0-0.4) % Absolute Granulocytes (1.4-6.9) x10^3/uL Basophils # (0-0.4) x10^3/uL PT 11.9 (9.4-12.5) SECONDS INR 1.10 (0.8-3.0) APTT 32.9 (25.1-36.5) SECONDS D-Dimer (0.0-0.50) mg/L Sodium (135-145) mmol/L Potassium (3.5-5.1) mmol/L Chloride (98-107) mmol/L Carbon Dioxide (22-30) mmol/L Anion Gap (5-15) MEQ/L BUN (9-20) mg/dL Creatinine (0.66-1.25) mg/dL Estimated GFR ML/MIN Glucose (74-106) mg/dL Calcium (8.4-10.2) mg/dL Total Bilirubin (0.2-1.3) mg/dL AST (17-59) U/L ALT (0-50) U/L Alkaline Phosphatase (38-126) U/L Troponin I (0.000-0.033) ng/mL Serum Total Protein (6.3-8.2) g/dL Albumin (3.5-5.0) g/dL Urine Color (Yellow) Urine Appearance (Clear) Urine pH (4.6-8.0) Ur Specific [place] (1.005-1.030) Urine Protein (Negative) Urine Glucose (UA) (Negative) mg/dL Urine Ketones (Negative) Urine Blood (Negative) Urine Nitrite (Negative) Urine Bilirubin (Negative) Urine Urobilinogen (0.2) mg/dL Ur Leukocyte Esterase (Negative) U Hyaline Cast (Auto) (0-2) /LPF Urine Microscopic RBC (0-5) /HPF Urine Microscopic WBC (0-5) /HPF Ur Epithelial Cells (None Seen) /HPF Urine Bacteria (None Seen) /HPF Urine Culture Reflexed (NO) ABO Group Rh Factor Antibody Screen (NEGATIVE) Crossmatch COMPATIBLE COMPATIBLE (COMPATIBLE) 08/07/23 08/07/23 08/07/23 Range/Units 15:20 15:00 14:13 WBC (4.0-10.5) x10^3/uL RBC (4.1-5.6) x10^6/uL Hgb (12.5-18.0) g/dL Hct (42-50) % MCV (78-100) fL MCH (26-32) pg MCHC (32-36) g/dL RDW (11.5-14.0) % Plt Count (150-450) x10^3/uL MPV (7.5-11.0) fL Gran % (36.0-66.0) % Immature Gran % (Auto) (0.00-0.4) % Nucleat RBC Rel Count (0.00-0.1) % Eos # (Auto) (0-0.5) x10^3/uL Immature Gran # (Auto) (0.00-0.03) x10^3u/L Absolute Lymphs (auto) (1.0-4.6) x10^3/uL Absolute Monos (auto) (0.0-1.3) x10^3/uL Absolute Nucleated RBC (0.00-0.01) x10^3u/L Lymphocytes % (24.0-44.0) % Monocytes % (0.0-12.0) % Eosinophils % (0.00-5.0) % Basophils % (0.0-0.4) % Absolute Granulocytes (1.4-6.9) x10^3/uL Basophils # (0-0.4) x10^3/uL PT (9.4-12.5) SECONDS INR (0.8-3.0) APTT (25.1-36.5) SECONDS D-Dimer 1.96 H* (0.0-0.50) mg/L Sodium (135-145) mmol/L Potassium (3.5-5.1) mmol/L Chloride (98-107) mmol/L Carbon Dioxide (22-30) mmol/L Anion Gap (5-15) MEQ/L BUN (9-20) mg/dL Creatinine (0.66-1.25) mg/dL Estimated GFR ML/MIN Glucose (74-106) mg/dL Calcium (8.4-10.2) mg/dL Total Bilirubin (0.2-1.3) mg/dL AST (17-59) U/L ALT (0-50) U/L Alkaline Phosphatase (38-126) U/L Troponin I (0.000-0.033) ng/mL Serum Total Protein (6.3-8.2) g/dL Albumin (3.5-5.0) g/dL Urine Color Yellow (Yellow) Urine Appearance Clear (Clear) Urine pH 6.5 (4.6-8.0) Ur Specific [place] 1.010 (1.005-1.030) Urine Protein Trace A (Negative) Urine Glucose (UA) Negative (Negative) mg/dL Urine Ketones Negative (Negative) Urine Blood Trace (Negative) Urine Nitrite Negative (Negative) Urine Bilirubin Negative (Negative) Urine Urobilinogen 1.0 A (0.2) mg/dL Ur Leukocyte Esterase Negative (Negative) U Hyaline Cast (Auto) NONE SEEN (0-2) /LPF Urine Microscopic RBC 0-2 (0-5) /HPF Urine Microscopic WBC 0-2 (0-5) /HPF Ur Epithelial Cells None Seen (None Seen) /HPF Urine Bacteria None Seen (None Seen) /HPF Urine Culture Reflexed YES (NO) ABO Group O Rh Factor POSITIVE Antibody Screen NEGATIVE (NEGATIVE) Crossmatch (COMPATIBLE) 08/07/23 08/07/23 08/07/23 Range/Units 14:13 14:13 14:13 WBC 9.4 (4.0-10.5) x10^3/uL RBC 3.30 L (4.1-5.6) x10^6/uL Hgb 7.9 L (12.5-18.0) g/dL Hct 25.5 L (42-50) % MCV 77.3 L (78-100) fL MCH 23.9 L (26-32) pg MCHC 31.0 L (32-36) g/dL RDW 15.5 H (11.5-14.0) % Plt Count 248 (150-450) x10^3/uL MPV 10.0 (7.5-11.0) fL Gran % 85.5 H (36.0-66.0) % Immature Gran % (Auto) 0.5 H (0.00-0.4) % Nucleat RBC Rel Count 0.0 (0.00-0.1) % Eos # (Auto) 0.05 (0-0.5) x10^3/uL Immature Gran # (Auto) 0.05 H (0.00-0.03) x10^3u/L Absolute Lymphs (auto) 0.81 L (1.0-4.6) x10^3/uL Absolute Monos (auto) 0.43 (0.0-1.3) x10^3/uL Absolute Nucleated RBC 0.00 (0.00-0.01) x10^3u/L Lymphocytes % 8.7 L (24.0-44.0) % Monocytes % 4.6 (0.0-12.0) % Eosinophils % 0.5 (0.00-5.0) % Basophils % 0.2 (0.0-0.4) % Absolute Granulocytes 8.00 H (1.4-6.9) x10^3/uL Basophils # 0.02 (0-0.4) x10^3/uL PT (9.4-12.5) SECONDS INR (0.8-3.0) APTT (25.1-36.5) SECONDS D-Dimer (0.0-0.50) mg/L Sodium 135 (135-145) mmol/L Potassium 3.2 L (3.5-5.1) mmol/L Chloride 105 (98-107) mmol/L Carbon Dioxide 23 (22-30) mmol/L Anion Gap 10.8 (5-15) MEQ/L BUN 9 (9-20) mg/dL Creatinine 0.74 (0.66-1.25) mg/dL Estimated GFR 121.9 ML/MIN Glucose 109 H (74-106) mg/dL Calcium 8.3 L (8.4-10.2) mg/dL Total Bilirubin 0.50 (0.2-1.3) mg/dL AST 38 (17-59) U/L ALT 33 (0-50) U/L Alkaline Phosphatase 134 H (38-126) U/L Troponin I 0.206 H* (0.000-0.033) ng/mL Serum Total Protein 6.5 (6.3-8.2) g/dL Albumin 3.0 L (3.5-5.0) g/dL Urine Color (Yellow) Urine Appearance (Clear) Urine pH (4.6-8.0) Ur Specific [place] (1.005-1.030) Urine Protein (Negative) Urine Glucose (UA) (Negative) mg/dL Urine Ketones (Negative) Urine Blood (Negative) Urine Nitrite (Negative) Urine Bilirubin (Negative) Urine Urobilinogen (0.2) mg/dL Ur Leukocyte Esterase (Negative) U Hyaline Cast (Auto) (0-2) /LPF Urine Microscopic RBC (0-5) /HPF Urine Microscopic WBC (0-5) /HPF Ur Epithelial Cells (None Seen) /HPF Urine Bacteria (None Seen) /HPF Urine Culture Reflexed (NO) ABO Group Rh Factor Antibody Screen (NEGATIVE) Crossmatch (COMPATIBLE) - Progress Progress Note: 08/07/23 15:57 32-year-old is evaluated for left lower chest/flank area pain since yesterday without any known trauma. Patient is given fluids and symptomatic treatment for pain, on reevaluation feeling better. Workup showed drop of hemoglobin from 11.9-7.9 with elevation of troponin 2.2 with a EKG no ST elevations. Patient is not tachycardic or tachypneic but has blood pressure on the lower end of normal. CT chest/abdomen/pelvis with contrast is obtained and preliminary review by me it seems like patient has splenic laceration versus infarct. Official report is pending. [facility] Discussed with patient about splenic laceration and plan of transfer and also went over risk and benefits of transfusion which she understands and wants to go ahead with it if needed. 08/07/23 16:24 Patient is excepted for transfer by Dr. Saldivar at [facility]. 08/07/23 16:46 Official report showed small mid splenic infarct with no free fluids. But patient has a drop of hemoglobin almost 4 points. Would benefit with transfer to higher level of care. Counseled pt/family regarding: lab results, diagnosis, rad results Medical Desision Making - Discussion of managment Care discussed with:: specialist (Dr. Cotto [facility] general surgeon) Reviewed:: Test results Agreed on:: Treatment plan Will see patient: in hospital - Diagnostic Testing Diagnostic test were ordered, analyzed, and reviewed by me: Yes Radiological Interpretation: Interpreted by me, Reviewed by me - Risk of complications The pt has a mod risk of morbidity or mortality based on: Need for major surgery in otherwise healthy patient - Departure Departure Disposition: Transfer Clinical Impression: Symptomatic anemia, Elevated troponin, Splenic infarction Condition: Fair Critical Care Time: Yes Critical Care Time(excluding separately billable procedures): Critical 75-104 mins Referrals: MARK CONTRERAS NP [Primary Care Provider] - Follow up/PCP as directed
[2023-08-07 14:18] LABS: BASOPHIL % 0.2 % (0.0-0.4); Basophil (Absolute #) 0.02 x10^3/uL (0-0.4); Eosinophil % 0.5 % (0.00-5.0); Eosinophil (Absolute #) 0.05 x10^3/uL (0-0.5); Hematocrit 25.5 % (42-50); Hemoglobin 7.9 g/dL (12.5-18.0); IMMATURE GRAN # 0.05 x10^3u/L (0.00-0.03); IMMATURE GRAN % 0.5 % (0.00-0.4); Lymphocyte (Absolute #) 0.81 x10^3/uL (1.0-4.6); Lymphocytes % 8.7 % (24.0-44.0); Mean Cell Volume 77.3 fL (78-100); Mean Corpuscular Hemoglobin 23.9 pg (26-32); Monocyte (Absolute #) 0.43 x10^3/uL (0.0-1.3); Monocytes % 4.6 % (0.0-12.0); Neutrophil % 85.5 % (36.0-66.0); Platelet Count 248 x10^3/uL (150-450); Red Cell Distribution Width 15.5 % (11.5-14.0); White Blood Count 9.4 x10^3/uL (4.0-10.5)
[2023-08-07] MEDS ORDERED: Zofran 4 MG/2 ML VIAL ONE (14:18)
[2023-08-07] MEDS ORDERED: Sodium Chloride 0.9% 1000 ML 1,000 ML ONE ×2 (14:19→16:00)
[2023-08-07] MEDS ORDERED: MORPHINE SULFATE 4 MG INJ ONE (14:19)
[2023-08-07] MEDS: Sodium Chloride 0.9% 1000 ML 1,000 ML IV STA ×2 (14:21→16:01)
[2023-08-07] MEDS: Zofran 4 MG/2 ML VIAL IV ONE (14:22)
[2023-08-07] MEDS: MORPHINE SULFATE 4 MG INJ IV ONE (14:25)
--- NOTE | 2023-08-07 14:27 | XRAY ---
Indication: Left chest wall pain with inspiration. Comparison: None Portable chest demonstrates normal heart, lungs, and bony thorax.
[2023-08-07 14:34] LABS: ANION GAP 10.8 MEQ/L (5-15); BILIRUBIN,TOTAL 0.5 mg/dL (0.2-1.3); Calcium 8.3 mg/dL (8.4-10.2); Creatinine 1 0.74 mg/dL (0.66-1.25); EST GLOMERULAR FILTRATION RATE 121.9 ML/MIN; Potassium 3.2 mmol/L (3.5-5.1); Total Protein 6.5 g/dL (6.3-8.2)
[2023-08-07 15:45] LABS: ABO TYPING O; Antibody Screen NEGATIVE (NEGATIVE); RH TYPING POSITIVE
[2023-08-07 15:45] LABS: ADD URINE CULTURE? YES (NO); Appearance Clear (Clear); Bacteria None Seen /HPF (None Seen); Bilirubin Negative (Negative); Blood Trace (Negative); Epithelial Cells None Seen /HPF (None Seen); Glucose, Urine Negative (Negative); Hyaline Casts NONE SEEN /LPF (0-2); Ketones Negative (Negative); Leukocyte Esterase Negative (Negative); Nitrite Negative (Negative); Ph 6.5 (4.6-8.0); Protein,Urine Dip Trace (Negative); RBC 0-2 /HPF (0-5); WBC 0-2 /HPF (0-5)
[2023-08-07 16:00] LABS: INR 1.1 (0.8-3.0); PROTIME 11.9 SECONDS (9.4-12.5); PTT 32.9 SECONDS (25.1-36.5)
--- NOTE | 2023-08-07 16:26 | XRAY ---
Indication: Left rib/flank pain. Low hemoglobin. No known injury. Multiple contiguous axial images obtained through the chest using 80 cc Isovue 370 contrast and PE protocol. Comparison: April 21, 2022 Good opacification of the pulmonary arteries to include the lobar and segmental branches. No pulmonary embolus. Heart not enlarged. Aorta is normal in course and caliber. No pathologic mediastinal/hilar lymphadenopathy. Lungs inflated with minimal bilateral dependent atelectasis. No suspicious pulmonary mass/nodule, infiltrate, or effusion. Bony thorax intact. CT abdomen/pelvis reported separately. Impression: Continued normal CT chest pulmonary embolus exam.
--- NOTE | 2023-08-07 16:38 | XRAY ---
Indication: Left rib/flank pain. Low hemoglobin. No known injury. Multiple contiguous axial images obtained through the abdomen and pelvis using 80 cc Isovue 370 contrast. Comparison: June 29, 2016 CT chest reported separately. Noncontrasted stomach and bowel loops appear nonobstructed with normal appendix. Continued enlarged spleen today measuring 15.4 cm with new small focus mid splenic infarction. No perisplenic/abdominal free fluid or free air. Both kidneys enhance and excrete with new 8 mm left mid renal cortical cyst. Distal left ureter is now distended up to 1.5 cm without obvious calculus on this contrast exam. Normal distended urinary bladder with now mild circumferential wall thickening, possible cystitis. Tiny nonspecific pelvic free fluid. Remaining liver, gallbladder, pancreas, adrenal glands, kidneys, ureters, bladder, and aorta are unremarkable. No pathologic retroperitoneal lymphadenopathy. Osseous structures intact. Impression: 1. Again splenomegaly with new small focus of mid splenic infarction. 2. New distal left hydroureter up to 1.5 cm. No obvious calculus on this contrasted exam. 3. New urinary bladder circumferential wall thickening. Rule out cystitis. Tiny nonspecific pelvic free fluid.
[2023-08-07] MEDS ORDERED: Ativan 2 MG/1 ML VIAL ONE (16:41)
[2023-08-07] MEDS: Ativan 2 MG/1 ML VIAL IV ONE (16:42)
[2023-08-07 16:44] LABS: CROSS MATCH (PRBC) COMPATIBLE (COMPATIBLE)
[2023-08-07 16:46] LABS: CROSS MATCH (PRBC) COMPATIBLE (COMPATIBLE)
[2023-08-07 16:50] VITALS: O2SAT 98
[2023-08-07 17:21] VITALS: BP 113/67; PULSE 88; RESP 20
== END 2023-08-07 17:22 | disposition short-term general hospital (02) ==
LOC: ED 13:12
DX: D73.5 Infarction of spleen (principal); R07.81 Pleurodynia; R07.9 Chest pain, unspecified; R79.89 Other specified abnormal findings of blood chemistry; D64.9 Anemia, unspecified
CPT/HCPCS: 36000; 36415; 71045; 71260; 74177; 80053; 81001; 84484; 85025; 85379; 85610; 85730; 86850; 86900; 86901; 86922; 87086; 93005; 96360; 96361; 96374; 96375; 99285; 99291; 99292; J2060; J2270; J2405